=== PATIENT | male | born 1935 | race Two or more races ===

== ENCOUNTER 2024-12-13 12:55 | Inpatient (IN) | payer MEDICARE, OTHER ==
[~2024-12-13] VITALS: Ht 170.2 cm; Wt 86.2 kg
[2024-12-13 13:28] LABS: PLATELET COUNT (AUTO) 207 K/uL (150-450); RED BLOOD CELL COUNT(AUTO) 4.46 MIL/uL (4.5-6.0); RED CELL DISTRIBUTION WIDTH 14.7 % (11.5-15.0); WHITE BLOOD COUNT (AUTO) 6.2 K/uL (4.3-11.0)
[2024-12-13 13:30] LABS: AMPHETAMINE, URINE NEGATIVE (NEGATIVE); BARBITURATE, URINE NEGATIVE (NEGATIVE); BENZODIAZEPINE, URINE NEGATIVE (NEGATIVE); CANNABINOID, URINE NEGATIVE (NEGATIVE); COCCAINE, URINE NEGATIVE (NEGATIVE); OPIATE, URINE NEGATIVE (NEGATIVE)
[2024-12-13 13:36] LABS: CALCIUM, SERUM 9.1 mg/dL (8.5-10.1); CREATININE 0.8 mg/dL (0.6-1.3); SODIUM SERUM 139 mmol/L (136-145); UREA NITROGEN, BLOOD 23 mg/dL (7-18)
[2024-12-13 13:39] LABS: APPEARANCE,URINE CLEAR (CLEAR); BLOOD, URINE TRACE Ery/uL (NEGATIVE); UGLUCOSE NEGATIVE (NEGATIVE)
[2024-12-13 13:40] LABS: LEUKOCYTE ESTERASE ,URINE NEGATIVE (NEGATIVE); NITRITE, URINE NEGATIVE (NEGATIVE)
[2024-12-13 13:42] LABS: ADD URINE CULTURE NO; SQUAMOUS EPITHELIAL CELL,UR 0-2 /HPF (None Seen)
[2024-12-13 13:42] LABS: ASPARTATE AMINOTRANSFERASE 18 U/L (15-37); TOTAL PROTEIN, SERUM 7.0 g/dL (6.4-8.2)
[2024-12-13 13:53] LABS: ALCOHOL, BLOOD < 10 mg/dL (0-10)
[2024-12-13] MEDS ORDERED: MELA5TAB PO (13:54)
[2024-12-13] MEDS ORDERED: GLYC-30 RC (13:54)
[2024-12-13] MEDS ORDERED: CLON0.5T PO (13:54)
[2024-12-13] MEDS ORDERED: ESCI10TA PO (13:54)
[2024-12-13] MEDS ORDERED: LISI40TA13 PO (13:54)
[2024-12-13] MEDS ORDERED: ACET650S11 RC (13:54)
[2024-12-13] MEDS ORDERED: NA P133E RC (13:54)
[2024-12-13] MEDS ORDERED: ACET325T53 PO (13:54)
[2024-12-13] MEDS ORDERED: QUET50TA PO (13:54)
[2024-12-13] MEDS ORDERED: CLONIDINE HCL 0.1 MG TABLET ONE (16:41)
[2024-12-13] MEDS: CLONIDINE HCL 0.1 MG TABLET PO ONE (16:47)
[2024-12-13] MEDS ORDERED: QUETIAPINE FUMARATE 25 MG TABLET ONE (17:08)
[2024-12-13] MEDS: QUETIAPINE FUMARATE 25 MG TABLET PO STA (17:10)
[2024-12-13] MEDS ORDERED: MAGNESIUM HYDROXIDE 30 ML UDC PO PRN (18:00)
[2024-12-13] MEDS ORDERED: ACETAMINOPHEN 325 MG TABLET PO PRN (18:00)
[2024-12-13] MEDS: AMLODIPINE BESYLATE 5 MG TABLET PO SCH (18:39)
[2024-12-13] MEDS: BLOOD SUGAR DIAGNOSTIC 1 EACH STRIP IN ONE (18:40)
[2024-12-13] MEDS: QUETIAPINE FUMARATE 25 MG TABLET PO PRN (21:05)
[2024-12-13] MEDS: ZOLPIDEM TARTRATE 5 MG TABLET PO PRN (22:43)
[2024-12-14 07:25] LABS: ASPARTATE AMINOTRANSFERASE 21.0 U/L (15-37); CALCIUM, SERUM 9.2 mg/dL (8.5-10.1); CREATININE 1.0 mg/dL (0.6-1.3); SODIUM SERUM 140.0 mmol/L (136-145); TOTAL PROTEIN, SERUM 7.6 g/dL (6.4-8.2); UREA NITROGEN, BLOOD 20.0 mg/dL (7-18)
[2024-12-14 07:33] LABS: LDL 148 mg/dL (0-99)
[2024-12-14 07:55] VITALS: BP 170/78; TEMP 97.9; O2SAT 96
[2024-12-14] MEDS: LISINOPRIL (20MG) 20 MG TABLET PO SCH (08:41)
[2024-12-14] MEDS: DIVALPROEX SODIUM 125 MG TABLET.DR PO SCH (12:58)
[2024-12-14 16:00] VITALS: BP 171/88; TEMP 98.1; O2SAT 93
[2024-12-14] MEDS: CLONIDINE HCL 0.1 MG TABLET PO PRN (16:14)
[2024-12-14] MEDS: RIVAROXABAN 15 MG TABLET PO SCH (16:14)
[2024-12-14 20:00] VITALS: BP 105/78; TEMP 97.7; O2SAT 94
[2024-12-14] MEDS: ATORVASTATIN 40 MG TABLET PO SCH (21:15)
[2024-12-14] MEDS: QUETIAPINE FUMARATE 25 MG TABLET PO SCH (21:19)
[2024-12-15] MEDS: ZOLPIDEM TARTRATE 5 MG TABLET PO PRN (01:10)
[2024-12-15] MEDS: QUETIAPINE FUMARATE 25 MG TABLET PO PRN (03:07)
[2024-12-15 08:00] VITALS: BP 127/74; TEMP 98.2; O2SAT 91
[2024-12-15 16:00] VITALS: BP 133/63; TEMP 98.1; O2SAT 94
[2024-12-15] MEDS: DIVALPROEX SODIUM 125 MG CAP.SPRINK PO STA (16:53)
[2024-12-15] MEDS: QUETIAPINE FUMARATE 25 MG TABLET PO STA (16:53)
[2024-12-15] MEDS: DIVALPROEX SODIUM 125 MG CAP.SPRINK PO SCH (21:22)
[2024-12-15] MEDS: QUETIAPINE FUMARATE 25 MG TABLET PO SCH (21:22)
[2024-12-16 08:00] VITALS: BP 127/74; TEMP 97.9; O2SAT 96
[2024-12-16] MEDS: QUETIAPINE FUMARATE 25 MG TABLET PO SCH (09:18)
[2024-12-16 16:00] VITALS: BP 138/62; TEMP 97.8; O2SAT 92
[2024-12-16] MEDS: CLOTRIMAZOLE 1% 15 GM TUBE TP SCH (17:55)
[2024-12-16 20:57] VITALS: BP 107/75; TEMP 97.9; O2SAT 95
[2024-12-16 21:18] VITALS: BP 107/75; TEMP 97.9; O2SAT 95
[2024-12-16] MEDS: Z GUARD REMEDY 4 OZ OINT TP PRN (21:39)
[2024-12-17 08:00] VITALS: BP 120/72; TEMP 97.5; O2SAT 95
[2024-12-17] MEDS: OLANZAPINE 10 MG VIAL IM ONE (13:05)
[2024-12-17] MEDS: DIVALPROEX SODIUM 125 MG CAP.SPRINK PO SCH (13:58)
[2024-12-17 16:00] VITALS: BP 100/55; TEMP 98.6; O2SAT 96
[2024-12-18] MEDS: MAG HYDROX/AL HYDROX/SIMETH 30 ML UDC PO PRN (02:16)
[2024-12-18 08:00] VITALS: BP 140/60; TEMP 97.7; O2SAT 96
[2024-12-18] MEDS: CLOTRIMAZOLE/BETAMETASONE DIPROPIONATE 15 GM TUBE TP SCH (08:38)
[2024-12-18 16:00] VITALS: BP 119/57; TEMP 98.9; O2SAT 97
[2024-12-18 19:41] VITALS: BP 139/51; TEMP 97.5; O2SAT 100
[2024-12-19 07:47] LABS: PLATELET COUNT (AUTO) 222 K/uL (150-450); RED BLOOD CELL COUNT(AUTO) 4.35 MIL/uL (4.5-6.0); RED CELL DISTRIBUTION WIDTH 14.2 % (11.5-15.0); WHITE BLOOD COUNT (AUTO) 5.5 K/uL (4.3-11.0)
[2024-12-19 08:00] VITALS: BP 139/63; TEMP 97.9; O2SAT 99
[2024-12-19] MEDS: QUETIAPINE FUMARATE 25 MG TABLET PO SCH (08:57)
[2024-12-19 16:00] VITALS: BP 116/55; TEMP 97.5; O2SAT 99
[2024-12-19 19:48] VITALS: BP 138/66; TEMP 97.6; O2SAT 99
[2024-12-20 08:00] VITALS: BP 153/73; TEMP 98.1; O2SAT 100
[2024-12-20] MEDS: DIVALPROEX SODIUM 125 MG CAP.SPRINK PO SCH (13:18)
[2024-12-20 16:00] VITALS: BP 118/81; TEMP 97.9; O2SAT 96
[2024-12-20 19:49] VITALS: BP 136/61; TEMP 98.1; O2SAT 95
[2024-12-20] MEDS: QUETIAPINE FUMARATE 25 MG TABLET PO SCH (21:11)
[2024-12-21 08:00] VITALS: BP 144/68; TEMP 97.6; O2SAT 98
[2024-12-21 11:02] VITALS: BP 139/60; O2SAT 97
[2024-12-21 16:00] VITALS: BP 119/64; TEMP 97.9; O2SAT 100
[2024-12-21 19:57] VITALS: BP 133/75; TEMP 97.9; O2SAT 100
[2024-12-22 08:00] VITALS: BP 147/61; TEMP 97.5; O2SAT 98
[2024-12-22 08:07] LABS: FOLIC ACID 17.7 ng/mL (>3.0)
[2024-12-22 20:46] VITALS: BP 112/50; TEMP 97.9; O2SAT 97
[2024-12-23 08:00] VITALS: BP 123/82; TEMP 97.8; O2SAT 99
[2024-12-23 16:00] VITALS: BP 112/61; TEMP 97.8; O2SAT 98
[2024-12-23] MEDS: OLANZAPINE 10 MG VIAL IM ONE (16:41)
[2024-12-23 20:00] VITALS: BP 119/98; TEMP 97.9; O2SAT 98
[2024-12-24 08:00] VITALS: BP 155/99; TEMP 98.6; O2SAT 97
[2024-12-24 08:07] VITALS: BP 155/99; TEMP 98.6; O2SAT 97
[2024-12-24] MEDS: QUETIAPINE FUMARATE 25 MG TABLET PO SCH (08:09)
[2024-12-24 16:00] VITALS: BP 114/82; TEMP 97.5; O2SAT 96
[2024-12-24 20:09] VITALS: BP 135/59; TEMP 98.5; O2SAT 97
[2024-12-25 08:00] VITALS: BP 126/57; TEMP 98.6; O2SAT 98
[2024-12-25 10:07] LABS: VITAMIN B1 THIAMINE,WB 96.6 nmol/L (66.5-200.0)
[2024-12-25 16:00] VITALS: BP 130/50; TEMP 98.2; O2SAT 97
[2024-12-25 20:00] VITALS: BP 112/67; TEMP 97.5; O2SAT 99
[2024-12-26 08:18] VITALS: BP 123/67; TEMP 97.7; O2SAT 100
[2024-12-26 09:22] LABS: APPEARANCE,URINE TURBID (CLEAR); BLOOD, URINE NEGATIVE Ery/uL (NEGATIVE); LEUKOCYTE ESTERASE ,URINE NEGATIVE (NEGATIVE); NITRITE, URINE NEGATIVE (NEGATIVE); UGLUCOSE NEGATIVE (NEGATIVE)
[2024-12-26 10:01] LABS: ADD URINE CULTURE NO
[2024-12-26 10:02] LABS: SQUAMOUS EPITHELIAL CELL,UR None Seen /HPF (None Seen); URINE AMORPHOUS URATE Moderate /HPF (None Seen)
[2024-12-26] MEDS: GABAPENTIN 300 MG CAPSULE PO SCH (14:47)
[2024-12-26 16:06] VITALS: BP 130/59; TEMP 97.8; O2SAT 96
[2024-12-26 21:03] VITALS: BP 131/63; TEMP 98.1; O2SAT 100
[2024-12-27 08:00] VITALS: BP 127/105; TEMP 98.1; O2SAT 97
[2024-12-27 09:50] VITALS: BP 127/105
== END 2024-12-27 12:30 | DRG 885 ==
LOC: ER 13:00 → GPS 16:58
PROVIDERS: ADMIT Psychiatry & Neurology Psychiatry; ATTEND Nurse Practitioner Family
DX: F29 Unspecified psychosis not due to a substance or known physiological condition (principal); G93.41 Metabolic encephalopathy; F02.82 Dementia in other diseases classified elsewhere, unspecified severity, with psychotic disturbance; F02.84 Dementia in other diseases classified elsewhere, unspecified severity, with anxiety; F02.83 Dementia in other diseases classified elsewhere, unspecified severity, with mood disturbance; I82.412 Acute embolism and thrombosis of left femoral vein; M48.55XA Collapsed vertebra, not elsewhere classified, thoracolumbar region, initial encounter for fracture; I10 Essential (primary) hypertension; R79.89 Other specified abnormal findings of blood chemistry; B35.6 Tinea cruris; E78.5 Hyperlipidemia, unspecified; L30.4 Erythema intertrigo; Z87.891 Personal history of nicotine dependence; M19.90 Unspecified osteoarthritis, unspecified site; F32.A Depression, unspecified; E05.90 Thyrotoxicosis, unspecified without thyrotoxic crisis or storm; G30.9 Alzheimer's disease, unspecified; L22 Diaper dermatitis; N40.0 Benign prostatic hyperplasia without lower urinary tract symptoms; Z20.822 Contact with and (suspected) exposure to COVID-19; Z73.6 Limitation of activities due to disability; F41.9 Anxiety disorder, unspecified; F39 Unspecified mood [affective] disorder; R32 Unspecified urinary incontinence; Z79.899 Other long term (current) drug therapy
CPT/HCPCS: 36415; 70450-TC; 71045-TC; 76770-TC; 80048-TC; 80053-TC; 80061-TC; 80076-TC; 80164-TC; 81001; 82607-TC; 82962-TC; 83921; 84425; 84439-TC; 84443-TC; 85025-TC; 85027-TC; 87081-TC; 87086-TC; 93970-TC; 97110-TC; 97116-TC; 97530-TC; G0480; J3490